=== PATIENT | male | born 1995 | race Asian ===

== ENCOUNTER 2019-05-28 09:06 | Emergency (ER) | payer OTHER ==
[~2019-05-28] VITALS: Ht 188 cm; Wt 90.0 kg
[2019-05-28] MEDS ORDERED: OFLOXACIN0.3 % OD (09:30)
[2019-05-28 09:50] VITALS: BP 144/69
== END 2019-05-28 09:50 | disposition home or self-care (01) | DRG 125 ==
LOC: ED 09:06
DX: H57.11 Ocular pain, right eye (principal); F17.210 Nicotine dependence, cigarettes, uncomplicated; X58.XXXA Exposure to other specified factors, initial encounter; Y93.89 Activity, other specified; Y92.89 Other specified places as the place of occurrence of the external cause; Y99.0 Civilian activity done for income or pay

== ENCOUNTER 2020-09-23 18:49 | Observation (INO) | payer SELFPAY ==
[~2020-09-23] VITALS: Ht 190.5 cm; Wt 90.5 kg
[~2020-09-23 18:49] MED LIST: OFLOXACIN0.3 % OD
--- NOTE | 2020-09-23 19:20 | NUR ---
PATIENT AMBULATORY TO ROOM 14 FOR BEDSIDE TRIAGE. AWAITING MD SMITH.
[2020-09-23 20:03] LABS: HEMATOCRIT 47.4 % (39.0-50.0); HEMOGLOBIN 15.9 g/dl (14.0-18.0); IMMATURE GRANULOCYTES 0.3 % (0.0-5.0); MEAN CORPUSCULAR HGB 29.2 pG CALC (26.0-32.0); MEAN CORPUSCULAR HGB CONC 33.5 g/dL CAL (32.0-36.0); NEUT# 8.09 thou/uL (1.82-7.42); RED BLOOD COUNT 5.45 mill/uL (4.70-6.10); RED CELL DISTRI WIDTH 12.1 % (11.5-15.5)
[2020-09-23 20:04] LABS: URINE BILIRUBIN - DIPSTICK NEGATIVE (NEGATIVE); URINE BLOOD DIPSTICK NEGATIVE (NEGATIVE); URINE COLOR YELLOW; URINE GLUCOSE - DIPSTICK NEGATIVE (NEGATIVE); URINE KETONE NEGATIVE (NEGATIVE); URINE LEUK ESTERASE NEGATIVE (NEGATIVE); URINE NITRITE - DIPSTICK NEGATIVE (Negative); URINE PH 7.5 (4.5-8.0); URINE PROTEIN - DIPSTICK NEGATIVE (NEG-TRACE); URINE UROBILINOGEN - DIPSTICK 0.2 E.U./dL (0.2)
[2020-09-23 20:17] LABS: ALBUMIN 5.1 g/dL (3.2-5.0); ALKALINE PHOSPHATASE 52 u/l (38-126); AMYLASE 79 u/l (30-110); ANION GAP 14 (6-22 (CALC)); BILIRUBIN, TOTAL 0.7 mg/dL (0.0-1.4); BUN 20 mg/dL (9-20); BUN/CREATININE RATIO 21 (12-20 (CALC)); CARBON DIOXIDE 29 mmol/l (22-30); CHLORIDE 102 mmol/l (95-108); GFR > 60 ML/MIN (>=60 (CALC)); GFR FOR AFR.AMER. > 60 ML/MIN (>=60 (CALC)); LIPASE 47 u/l (23-300); POTASSIUM 4.1 mmol/l (3.5-5.1); SGOT/AST 26 u/l (17-59); SODIUM 141 mmol/l (137-146); TOTAL PROTEIN 8.1 g/dL (6.3-8.2)
--- NOTE | 2020-09-23 20:32 | NUR ---
PT MEDICATED WITH TORADOL AND GI COCKTAIL. FOR PAIN 05/12.
--- NOTE | 2020-09-23 21:15 | NUR ---
PT BACK FROM CT, WAITING ON RESULTS. PAIN DOWN TO 2/10
--- NOTE | 2020-09-23 22:20 | NUR ---
RADIOLOGIST CALLED DR LEON WITH RESULTS. PT HAS POSSIBLE ILEUS VS SMALL BOWL OBSTRUCTION. PT DENIES NAUSEA.
--- NOTE | 2020-09-23 22:40 | NUR ---
COVID ANTIGEN SWAB DONE FOR ADMIT.
--- NOTE | 2020-09-23 23:20 | NUR ---
COVID ANTIGEN NEGATIVE.
--- NOTE | 2020-09-24 00:15 | NUR ---
Admission Note Report Given to: ANGEL DAVE Transported by: X Wheelchair Stretcher Transported with: X Nurse Transporter X Patent IV O2 Regional Marketing Director Location: ICU X [facility]
[2020-09-24 00:25] VITALS: BP 130/92
--- NOTE | 2020-09-24 01:00 | NUR ---
PATIENT ADMITTED FROM ER VIA WHEELCHAIR WITH ER STAFF IN ATTENDANCE. PATIENT IS AWAKE ALERT AND ORIENTEDX3. PATIENT ADMITTED FOR BOWEL OBSTRUCTION. PATIENT IS NPO. IV SITE TO RIGHT AC INTACT AND HEALTHY. IVF D5LR HUNG AND INFUSING AT 150CC/HR. PATIENT WITH C/O ABD PAIN-MEDICATED WITH MORPHINE 4MG IVP FOR PAIN. PATIENT ORIENTED TO ROOM AND SURROUNDINGS. INSTRUCTED ON USE OF NURSE CALL LIGHT SYSTEM, TV REMOTE AND PHONE. SAFETY PRECAUTIONS REVIEWED. CALL LIGHT IN REACH. WILL CONT TO MONITOR.
[2020-09-24 04:00] VITALS: BP 138/80
--- NOTE | 2020-09-24 04:15 | NUR ---
PATIENT RESTING IN BED-C/O THROBBING ABD PAIN AND SLIGHT NAUSEA-REMAINS NPO AT THIS TIME. PATIENT MEDICATED WITH PEPCID 20MG IVP ORDERED, ZOFRAN 4MG IVP FOR NAUSEA AND WITH MORPHINE 4MG IVP FOR 7/10 THROBBING ABD PAIN. IV SITE TO RAC REMAINS HEALTHY AT THIS TIME WITH IVF D5LR PATENT AND INFUSING AT 150CC/HR. CALL LIGHT IN REACH. WILL CONT TO MONITOR.
[2020-09-24 07:43] VITALS: BP 107/67
--- NOTE | 2020-09-24 07:50 | NUR ---
REPORT WAS RECEIVED FROM TENZIN. PATIENT IS A&O X3. RESPS EVEN AND UNLABORED. PATIENT NPO. PT STATED PAIN IN ABD 03/12 BUT DENIES PAIN MEDICATION AT THIS TIME. IVF INFUSING WELL. PT STATED HE HAD A BM YESTERDAY. PT DENIES ANY NEEDS AT THIS TIME. CALL LIGHT IN REACH.
--- NOTE | 2020-09-24 11:16 | NUR ---
DR. CHAND IN ROOM TO ASSESS PATIENT. PATIENT STATED HE HAD A SMALL BM COLOR GREEN. PO FLUIDS PROVIDED. PATEINT STATED PAIN 2/10 IN ABD BUT DENIES PAIN MEDICATION AT THIS TIME. CALL LIGHT IN REACH.
[2020-09-24 15:30] VITALS: BP 100/63
--- NOTE | 2020-09-24 15:37 | NUR ---
PO FLUIDS PROVIDED BY WING MAILER MACHINE OPERATOR. PATIENT STATED PAY IS OKAY AND DENIES PAIN MEDICATION AT THIS TIME. WING MAILER MACHINE OPERATOR IS SETTING PATIENT FOR A SHOWER. PATIENT DENIES ANY OTHER NEEDS AT THIS TIME. CALL LIGHT IN REACH.
--- NOTE | 2020-09-24 19:22 | NUR ---
PATIENT AWAKE ALERT AND ORIENTEDX3 RESTING IN BED. PATIENT STATES THAT HE IS FEELING BETTER TONIGHT. STATES THAT HE IS HAVING LOOSE BM'S AND WAS ABLE TO TOLERATE DINNER OK. NO PAIN AT THIS TIME-OCCATIONAL CRAMPING AND ABD PAIN. IV SITE TO RAC HEALTHY WITH IVF D5LR PATENT AND INFUSING AT 75CC/HR. DENIES ANY DIFFICULTY WITH URINATION. LUNGS CLEAR. ABD SOFT WITH ACTIVE BS. NO PERIPHERAL EDEMA NOTED AND PULSES PALPABLE. CALL LIGHT IN REACH. WILL CONT TO MONITOR.
[2020-09-24 20:00] VITALS: BP 117/84
--- NOTE | 2020-09-24 20:32 | NUR ---
PATIENT RESTING IN BED-C/O ABD PAIN AND CRAMPING. MEDICATED WITH ZOFRAN MG IVP FOR NAUSEA NAD WITH MORPHINE 4MG IVP FOR 8/10 ABD PAIN. IVF PATENT AND INFUSING VIA RAC SITE AT 75CC/HR. CALL LIGHT IN REACH. WILL CONT TO MONITOR,
--- NOTE | 2020-09-24 23:41 | NUR ---
PATIENT RESTING IN BED WITH SHEET OVER HIS HEAD-APPEARS SLEEPING. RESPS ARE EVEN AND UNLABORED. IVF PATENT AND INFUSING VIA RAC SITE AT 75CC/HR. CALL LIGHT IN REACH. WILL CONT TO MONITOR.
--- NOTE | 2020-09-25 03:55 | NUR ---
PATIENT UP TO THE BR TO VOID-STEADY ON HIS FEET. BACK TO BED-C/O ABD PAIN 6/10 ON THE PAIN SCALE. MEDICATED WITH ZOFRAN 4MG IVP FOR NAUSEA AND WITH MORPHINE 4MG IVP FOR ABD PAIN. IVF D5LR PATENT AND INFUSING VIA RAC SITE-SITE REMAINS HEALTHY AT THIS TIME. SAFETY PRECAUTIONS REINFORCED. CALL LIGHT IN REACH. WILL CONT TO MONITOR.
[2020-09-25 04:00] VITALS: BP 112/72
[2020-09-25 08:00] VITALS: BP 114/75
--- NOTE | 2020-09-25 09:00 | NUR ---
PT SEEN AWAKE, ALERT, ORIENTED X 3, AMBULATORY IN ROOM. PT WITH NAUSEA, PROVIDED MED FOR SAME. NO BM TODAY, BUT DID HAVE YESTERDAY. NO ACUTE DISTRESS NOTED.
--- NOTE | 2020-09-25 13:00 | NUR ---
PT DRINKING CONTRAST FOR CT LATER TODAY. PT MEDICATED ONCE FOR PAIN AND ALSO NEEDED PHENERGAN FOR NAUSEA. DR CHAND HAS BEEN IN TO SEE PT, SPOKE WITH HIM ABOUT PLAN OF CARE.
[2020-09-25 16:00] VITALS: BP 99/63
--- NOTE | 2020-09-25 19:00 | NUR ---
REPORT RECEIVED FROM ANGEL HEART. PT RESTING IN BED WITH EYES CLOSED. NO S/S OF DISTRESS AT THIS TIME. SAFETY PRECAUTIONS IN PLACE, WILL CONTINUE TO MONITOR.
[2020-09-25 20:00] VITALS: BP 95/64
--- NOTE | 2020-09-25 20:10 | NUR ---
PT RESTING IN BED, RESPIRATIONS ARE EVEN AND UNLABORED ON RA. LUNGS SOUND CLEAR. PEDAL PULSES ARE STRONG. PT DENIES ANY PAIN OR DISCOMFORT AT THIS TIME. SAFETY PRECAUTIONS IN PLACE. WILL CONTINUE TO MONITOR.
--- NOTE | 2020-09-26 00:05 | NUR ---
PT RESTING IN BED. NO S/S OF DISTRESS AT THIS TIME. SAFETY PRECAUTIONS IN PLACE. WILL CONTINUE TO MONITOR.
--- NOTE | 2020-09-26 00:20 | NUR ---
PT HEART RATE SUSHANT MORA NOTIFIED NEW ORDERS OBTAINED AND TO BE CARRIED OUT
[2020-09-26 04:00] VITALS: BP 118/76
[2020-09-26 07:38] VITALS: BP 107/75
--- NOTE | 2020-09-26 07:38 | NUR ---
RECEIEVED REPORT FROM Thompson LAL RN. PT RESTING IN SEMI FOWLERS POSITION UPON ENTERING ROOM. INTRODUCED SELF TO PT AND DISCUSSED POC. PT IS A/O X3. ASSESSMENT AND VITALS OBTAINED. BP 107/75, HR 64, O2 99% ON ROOM AIR. REPSIRATIONS ARE EVEN AND UNLABORED WITH NO SIGNS OF DISTRESS NOTED. HEART RHYTHM NORMAL. BOWEL SOUNDS ARE ACTIVE IN ALL QUADRANTS, LAST RPORETD BM 09/26/2020. RADIAL AND PEDAL PULSES ARE STRONG WITH NORMAL CAPILLARY REFILL. #20G IN RAC RUNNING WITH IVF PER ODER SITE APPEARS HEALTHY AND PATENT. PT COMPLAINS OF 3/10 PAIN IN ABD BUT REFUSES PAIN MEDICATION. PT REQUEST FOR FOOD TO REHEATED. WRITTER INFORMED PT THE BREAKFAAST WOULD BE UP SHORTLY. PT VERBAILZED UNDERSTANDING. ALL SAFETY PRECAUTIONS ARE IN PLACE WITH CALL LIGHT IN REACH. WILL CONTINUE TO MONITOR
--- NOTE | 2020-09-26 08:07 | NUR ---
dr conner at bedside discussing poc with pt
--- NOTE | 2020-09-26 08:33 | NUR ---
pt transported to [facility] in stable condition via wheelchair accompained by malachi stanley
[2020-09-26] MEDS ORDERED: ZOFRAN4 MG/TAB PO (08:53)
--- NOTE | 2020-09-26 08:54 | NUR ---
PT BACK FROM XRAY. PT SETTLED BACK INTO BED. IVF RUNNING PER ODER, SITE APPEARS HEALTHY AND PATENT. PT DNEIES ANY NEEDS AT THIS TIME. ALL FSATEY PRECAUTIONS AR EIN PLACE WIHT CALL LIGHT INR EACH. WILL CONTINUE TO MONITOR
--- NOTE | 2020-09-26 10:14 | NUR ---
PT GIRLFRIEND PROVIDED WITH UPDATE. PASSCODE PROVIDED.
--- NOTE | 2020-09-26 12:00 | NUR ---
PT EDUACTED ON DISCHARGE INSTRUCTIONS AND NEW MEDICTAION VIOLETTE. PT VERBAILZED UNDERSTANDING. IV REMOVED WITH CATHATER STILL INTACT. PT TOLERATED WELL. PT WAITING FOR TRANSPORTATION AT THIS TIME. ALL SAFETY AND ISOLATION PREACUTIONS ARE IN PLACE WITH CALL LIGHT IN REACH. WILL CONTINUE TO MONITOR
--- NOTE | 2020-09-26 12:24 | NUR ---
Discharge instructions given. Patient verbalizes understanding of same. Discharged in stable condition via Wheelchair to Home with family. All belongings sent with pt. PT DISCHARGED HOME IN STABLE CONDITION VIA WHEELCHAIR WITH ALL BELONGINGS AND DISCHARGE PAPERWORK
== END 2020-09-26 12:24 | disposition home or self-care (01) | DRG 390 ==
LOC: ED 18:49 → ED-I 22:26 → ED 22:35 → MS2 23:36
PROVIDERS: Family Medicine; ADMIT Surgery; ATTEND Surgery
DX: K56.609 Unspecified intestinal obstruction, unspecified as to partial versus complete obstruction (principal); F17.210 Nicotine dependence, cigarettes, uncomplicated; Z20.828 Contact with and (suspected) exposure to other viral communicable diseases
CPT/HCPCS: G0378; J1650; Q9967